=== PATIENT | male | born 1995 | race Two or more races ===

== ENCOUNTER → 2024-11-01 | Day surgery (SDC) | payer BC ==
[~2024-11-01] VITALS: Ht 182.9 cm; Wt 83.9 kg
[~2024-11-01] MED LIST: ACETAMINOPHEN 1000MG/100ML 100 ML IV ONE; ACETAMINOPHEN 650MG SUPP PR PRN; BUPIVACAINE HCL/PF 0.5% (5MG/ML) 10ML ONE; CEFAZOLIN SODIUM 1000MG/VIAL ONE; EPINEPHRINE 1:1000 1 MG/ML AMP ONE; FENTANYL CITRATE/PF 50MCG/ML 2ML VIAL ONE; HYDROCODONE/ACETAMINOPHEN 5/325MG TABLET PO PRN; IPRATROPIUM/ALBUTEROL 0.5-3(2.5)MG/3ML NEB HHN PRN; KETOROLAC 30MG/ML VIAL ONE; LABETALOL 5MG/ML 4ML INJ IV PRN; LACTATED RINGERS 1,000 ML IV SCH; LIDOCAINE HCL 1% 10 MG/ML 10ML VIAL ONE; LIDOCAINE HCL/EPINEPHRINE 1%-EPI 1:100,000 20ML VIAL ONE; MIDAZOLAM HCL 2 MG/2 ML VIAL ONE; MORPHINE SULFATE 4 MG/ML INJ (FOR IV/IM USE) IV PRN; NALOXONE HCL 0.4MG/ML 1ML VIAL IV PRN; NALOXONE HCL 0.4MG/ML VIAL IV PRN; ONDANSETRON HCL 4MG/2ML INJ IV PRN; OXYC-100 MT; POLYMYXIN B SULFATE 500000 UNITS/VIAL ONE; PROPOFOL 200MG/20ML VIAL IV ONE; ROPIVACAINE HCL 1% 20 ML VIAL EPI ONE; VANCOMYCIN HCL 1GM VIAL ONE
[2024-11-01 07:03] LABS: BASOPHILS % 0.6 % (0.0-2.0); EOSINOPHILS % 2.9 % (0.0-5.0); HEMATOCRIT. 43.7 % (42.0-52.0); HEMOGLOBIN. 14.7 g/dL (14.0-18.0); LYMPHOCYTES % 29.1 % (20.0-50.0); MEAN CORPUSCULAR HEMOGLOBIN 30.5 pg (28.0-32.0); MEAN CORPUSCULAR HGB CONC 33.6 g/dL (31.0-37.0); MEAN CORPUSCULAR VOLUME 90.8 fL (80.0-94.0); MEAN PLATELET VOLUME 8.7 fl (7.4-10.4); MONOCYTES % 7.8 % (2.0-8.0); NEUTROPHILS % 59.6 % (40.0-76.0); PLATELET 176 x1000/uL (130-400); RED BLOOD CELL COUNT 4.81 mill/uL (4.7-6.1); RED CELL DISTRIBUTION WIDTH 13.3 % (11.6-14.6); WHITE BLOOD COUNT 6.3 x1000/uL (4.5-11.0)
[2024-11-01 07:10] LABS: INR 1.1; PROTHROMBIN TIME 11.4 sec (9.6-11.0)
[2024-11-01 07:23] LABS: CHLORIDE 104 mEq/L (98-107); POTASSIUM 4.1 mEq/L (3.5-5.1); SODIUM 139 mEq/L (136-145)
[2024-11-01 07:24] LABS: CALCIUM 9.3 mg/dL (8.7-10.4); CARBON DIOXIDE 29 mEq/L (21-32)
[2024-11-01 07:29] LABS: CREATININE 1.1 mg/dL (0.6-1.3); GLUCOSE 101 mg/dL (70-105); UREA NITROGEN BLOOD 10 mg/dL (9-23)
[2024-11-01 07:31] LABS: ALANINE AMINOTRANSFERASE 15 IU/L (10-49); ALBUMIN 4.4 g/dL (3.2-4.8); ASPARTATE AMINOTRANSFERASE 20 IU/L (<34); BILIRUBIN TOTAL 0.9 mg/dL (0.1-1.0)
[2024-11-01] MEDS: MEPERIDINE HCL/PF 25MG/ML CPJ IV PRN (11:27)
[2024-11-01 11:59] VITALS: BP 125/68; PULSE 82; RESP 15
[2024-11-01] MEDS: HYDROMORPHONE HCL/PF 1MG/ML INJ IV PRN (11:59)
== END | disposition home or self-care (01) ==
LOC: OR 06:28
DX: S83.511A Sprain of anterior cruciate ligament of right knee, initial encounter (principal); S83.281A Other tear of lateral meniscus, current injury, right knee, initial encounter; Z79.899 Other long term (current) drug therapy; Z98.890 Other specified postprocedural states; X58.XXXA Exposure to other specified factors, initial encounter; Y93.89 Activity, other specified; Y92.89 Other specified places as the place of occurrence of the external cause; Y99.8 Other external cause status
CPT/HCPCS: 29888; 29882; 80053; 85025; 85610; 36415; 88311; 88305; 97162; 71045; 93005; 97116; J3010; J0665; J0690; J3490 ×2; J1885; J2004; J2003; J2250; J2704; J2795; J3370; J1171; J2175; C1713; J0131